=== PATIENT | female | born 1980 | race Asian ===

== ENCOUNTER → 2021-10-29 | Outpatient (CLI) | payer MEDICAID ==
[2021-10-29 12:59] LABS: Basophils # (auto) 0 10 ^3/uL (0-0.2); Basophils % (auto) 0.5 % (0.0-2.0); Eosinophils # (auto) 0.2 10 ^3/uL (0-0.8); Eosinophils % (auto) 2.4 % (0.0-7.0); Hematocrit 31.9 % (36.0-46.0); Hemoglobin 11.3 g/dL (12.2-16.2); Lymphocytes # (auto) 1.8 10 ^3/uL (0.4-5.4); Lymphocytes % (auto) 19.7 % (10.0-50.0); Mean Corpuscular Hemoglobin 30.1 pg (28.0-32.0); Mean Corpuscular Hgb Conc. 35.5 g/dL (32.0-36.0); Mean Corpuscular Volume 84.7 fL (80.0-100.0); Monocytes # (auto) 0.5 10 ^3/uL (0-1.3); Monocytes % (auto) 5.1 % (0.0-12.0); Neutrophils # (auto) 6.5 10 ^3/uL (1.6-8.6); Neutrophils % (auto) 72.3 % (37.0-80.0); Red Blood Cells 3.76 10^6/uL (4.0-5.20); Red Cell Distribution Width 13.6 % (11.8-14.3); White Blood Cell 9.1 10^3/uL (4.4-10.8)
[2021-10-29 13:07] LABS: Amphetamine Screen, Urine NEGATIVE (NEGATIVE); Barbiturate Scree,Urine NEGATIVE (NEGATIVE); Benzodiazephine Screen, Urine NEGATIVE (NEGATIVE); Cannabinoid Screen, Urine NEGATIVE (NEGATIVE); Cocaine Screen, Urine NEGATIVE (NEGATIVE)
[2021-10-29 13:13] LABS: Alcohol, Urine < 3.0 mg/dL (0-10); Opiate Scree,Urine NEGATIVE (NEGATIVE); Phencyclidine Screen, Urine NEGATIVE (NEGATIVE)
[2021-10-30 06:06] LABS: RPR Non Reactive (Non Reactive)
== END | disposition home or self-care (01) ==
LOC: LAB 11:17
PROVIDERS: ATTEND Obstetrics & Gynecology
DX: Z34.00 Encounter for supervision of normal first pregnancy, unspecified trimester (principal); Z31.430 Encounter of female for testing for genetic disease carrier status for procreative management; Z20.2 Contact with and (suspected) exposure to infections with a predominantly sexual mode of transmission; N39.0 Urinary tract infection, site not specified
CPT/HCPCS: 36415; 80307; 83036; 84112; 84144; 84702; 85025; 86592; 86703; 86762; 86850; 86900; 86901; 87086; 87340

== ENCOUNTER 2022-02-05 10:25 | Observation (INO) | payer MEDICAID ==
[2022-02-05] MEDS ORDERED: PREN-96 PO (11:35)
== END 2022-02-05 11:50 | disposition home or self-care (01) ==
LOC: LDRP 10:25
PROVIDERS: ADMIT Obstetrics & Gynecology; ATTEND Obstetrics & Gynecology
DX: O28.1 Abnormal biochemical finding on antenatal screening of mother (principal); O34.63 Maternal care for abnormality of vagina, third trimester; N89.8 Other specified noninflammatory disorders of vagina; Z3A.30 30 weeks gestation of pregnancy
CPT/HCPCS: 59025; 81002; 94760; G0378

== ENCOUNTER 2022-02-12 08:20 | Observation (INO) | payer MEDICAID ==
[~2022-02-12 08:20] MED LIST: PREN-96 PO
== END 2022-02-12 11:03 | disposition home or self-care (01) ==
LOC: LDRP 09:18
PROVIDERS: ADMIT Obstetrics & Gynecology; ATTEND Obstetrics & Gynecology
DX: O28.1 Abnormal biochemical finding on antenatal screening of mother (principal); R77.2 Abnormality of alphafetoprotein; Z3A.31 31 weeks gestation of pregnancy
CPT/HCPCS: 59025; 81002; 94760; G0378

== ENCOUNTER 2022-02-19 07:46 | Observation (INO) | payer MEDICAID | END 2022-02-19 10:12 | disposition home or self-care (01) | LOC: LDRP 09:00 | PROVIDERS: ADMIT Obstetrics & Gynecology; ATTEND Obstetrics & Gynecology | DX: O28.1 Abnormal biochemical finding on antenatal screening of mother (principal); O99.891 Other specified diseases and conditions complicating pregnancy; M54.9 Dorsalgia, unspecified; Z3A.32 32 weeks gestation of pregnancy | CPT/HCPCS: 59025; 81002; 94760; G0378 ==

== ENCOUNTER 2022-02-26 08:42 | Observation (INO) | payer MEDICAID ==
[~2022-02-26] VITALS: Ht 157.5 cm; Wt 59.9 kg
[2022-02-26] MEDS ORDERED: TERBUTALINE SULFATE 1 MG/ML 1ML VIAL SC SCH (10:00)
== END 2022-02-26 11:06 | disposition home or self-care (01) ==
LOC: LDRP 08:42
PROVIDERS: ADMIT Obstetrics & Gynecology; ATTEND Obstetrics & Gynecology
DX: O28.1 Abnormal biochemical finding on antenatal screening of mother (principal); R77.2 Abnormality of alphafetoprotein; Z3A.33 33 weeks gestation of pregnancy
CPT/HCPCS: 59025; 81002; 94760; 96372; G0378; J3105

== ENCOUNTER 2022-03-05 08:39 | Observation (INO) | payer MEDICAID ==
[~2022-03-05] VITALS: Ht 149.9 cm; Wt 70.3 kg
== END 2022-03-05 09:47 | disposition home or self-care (01) ==
LOC: LDRP 08:39
PROVIDERS: ADMIT Obstetrics & Gynecology; ATTEND Obstetrics & Gynecology
DX: O28.1 Abnormal biochemical finding on antenatal screening of mother (principal); Z3A.34 34 weeks gestation of pregnancy
CPT/HCPCS: 59025; 76818; 81002; 94760; G0378

== ENCOUNTER 2022-03-12 07:59 | Observation (INO) | payer MEDICAID | END 2022-03-12 10:47 | disposition home or self-care (01) | LOC: LDRP 08:30 | PROVIDERS: ADMIT Obstetrics & Gynecology; ATTEND Obstetrics & Gynecology | DX: O28.1 Abnormal biochemical finding on antenatal screening of mother (principal); R77.2 Abnormality of alphafetoprotein; O42.92 Full-term premature rupture of membranes, unspecified as to length of time between rupture and onset of labor; Z3A.35 35 weeks gestation of pregnancy | CPT/HCPCS: 59025; 76818; 81002; 94760; G0378 ==

== ENCOUNTER → 2022-03-12 | Outpatient (CLI) | payer MEDICAID ==
[2022-03-12 12:39] LABS: Hematocrit 35.6 % (36.0-46.0); Hemoglobin 12.2 g/dL (12.2-16.2); Mean Corpuscular Hemoglobin 30.6 pg (28.0-32.0); Mean Corpuscular Hgb Conc. 34.1 g/dL (32.0-36.0); Mean Corpuscular Volume 89.5 fL (80.0-100.0); Red Blood Cells 3.98 10^6/uL (4.0-5.20)
[2022-03-12 12:51] LABS: Basophils % (manual) 0 (0.0-2.0); Blast Cells 0; Metamyelocytes % 0; Myelocytes % 0; Promyelocytes % 0; Reactive Lymphocytes 0
[2022-03-12 13:03] LABS: Band Neutrophils % (manual) 8; Eosinophils % (manual) 1 (0-7); Lymphocytes % (manual) 20 (10.0-50.0); Monocytes % (manual) 8 (0-12)
[2022-03-13 07:06] LABS: RPR Non Reactive (Non Reactive)
== END | disposition home or self-care (01) ==
LOC: LAB 11:19
PROVIDERS: ATTEND Obstetrics & Gynecology
DX: Z34.80 Encounter for supervision of other normal pregnancy, unspecified trimester (principal); Z11.3 Encounter for screening for infections with a predominantly sexual mode of transmission
CPT/HCPCS: 36415; 84112; 85007; 85027; 86592

== ENCOUNTER 2022-03-19 07:38 | Observation (INO) | payer MEDICAID | END 2022-03-19 11:43 | disposition home or self-care (01) | LOC: LDRP 08:30 | PROVIDERS: ADMIT Obstetrics & Gynecology; ATTEND Obstetrics & Gynecology | DX: O28.1 Abnormal biochemical finding on antenatal screening of mother (principal); R77.2 Abnormality of alphafetoprotein; Z3A.37 37 weeks gestation of pregnancy | CPT/HCPCS: 59025; 76818; 81002; 94760; G0378 ==

== ENCOUNTER 2022-03-26 09:54 | Observation (INO) | payer MEDICAID ==
[2022-03-26 11:44] LABS: Albumin 2.8 g/dL (3.4-5.0); BUN/Creatinine Ratio 12.5; Calcium 8.7 mg/dL (8.5-10.1); Potassium 4.1 mmol/L (3.5-5.1)
[2022-03-26 11:47] LABS: Bilirubin, Total 0.3 mg/dL (0.2-1.0); Total Protein 6.8 g/dL (6.4-8.2)
[2022-03-26 12:00] LABS: Basophils # (auto) 0 10 ^3/uL (0-0.2); Basophils % (auto) 0.5 % (0.0-2.0); Eosinophils # (auto) 0.1 10 ^3/uL (0-0.8); Eosinophils % (auto) 1.9 % (0.0-7.0); Hematocrit 34.3 % (36.0-46.0); Hemoglobin 12.4 g/dL (12.2-16.2); Lymphocytes # (auto) 1.6 10 ^3/uL (0.4-5.4); Lymphocytes % (auto) 20.4 % (10.0-50.0); Mean Corpuscular Hgb Conc. 36.1 g/dL (32.0-36.0); Mean Corpuscular Volume 88.6 fL (80.0-100.0); Monocytes # (auto) 0.6 10 ^3/uL (0-1.3); Neutrophils # (auto) 5.3 10 ^3/uL (1.6-8.6); Neutrophils % (auto) 69.2 % (37.0-80.0); Nucleated Red Blood Cells % 0.1 %; Red Blood Cells 3.88 10^6/uL (4.0-5.20); Red Cell Distribution Width 14.1 % (11.8-14.3); White Blood Cell 7.6 10^3/uL (4.4-10.8)
== END 2022-03-26 12:07 | disposition home or self-care (01) ==
LOC: UNDOADMOB 09:54 → LDRP 09:54 → UNDODISOB 12:07
PROVIDERS: ADMIT Obstetrics & Gynecology; ATTEND Obstetrics & Gynecology
DX: O35.1XX0 Maternal care for (suspected) chromosomal abnormality in fetus, not applicable or unspecified (principal); R77.2 Abnormality of alphafetoprotein; O42.92 Full-term premature rupture of membranes, unspecified as to length of time between rupture and onset of labor; Z3A.37 37 weeks gestation of pregnancy
CPT/HCPCS: 36415; 59025; 76818; 80053; 81002; 85025; G0378

== ENCOUNTER 2022-03-31 10:02 | Observation (INO) | payer MEDICAID | END 2022-03-31 16:00 | disposition home or self-care (01) | LOC: UNDOADMOB 11:19 → LDRP 11:19 | PROVIDERS: ADMIT Obstetrics & Gynecology Obstetrics; ATTEND Obstetrics & Gynecology Obstetrics | DX: O32.1XX0 Maternal care for breech presentation, not applicable or unspecified (principal); O09.523 Supervision of elderly multigravida, third trimester; O26.893 Other specified pregnancy related conditions, third trimester; R77.2 Abnormality of alphafetoprotein; Z3A.38 38 weeks gestation of pregnancy | CPT/HCPCS: 59025; 76818; 81002; 94760; G0378 ==

== ENCOUNTER 2022-04-04 05:48 | Inpatient (IN) | payer MEDICAID ==
[2022-04-02 10:09] LABS: Urine Bacteria FEW /hpf (None Seen); Urine Blood Negative /uL (Negative); Urine Hyaline Cast FEW /lpf (0 - 2); Urine Specific Gravity 1.002 (1.001-1.035); Urine WBC 18 /hpf (0 - 5)
[2022-04-02 10:11] LABS: Basophils # (auto) 0.1 10 ^3/uL (0-0.2); Basophils % (auto) 0.9 % (0.0-2.0); Eosinophils # (auto) 0.1 10 ^3/uL (0-0.8); Eosinophils % (auto) 1.3 % (0.0-7.0); Hematocrit 36.7 % (36.0-46.0); Hemoglobin 12.5 g/dL (12.2-16.2); Lymphocytes % (auto) 12.2 % (10.0-50.0); Mean Corpuscular Hemoglobin 30.4 pg (28.0-32.0); Mean Corpuscular Volume 89.5 fL (80.0-100.0); Monocytes # (auto) 0.6 10 ^3/uL (0-1.3); Monocytes % (auto) 6.9 % (0.0-12.0); Neutrophils # (auto) 6.3 10 ^3/uL (1.6-8.6); Neutrophils % (auto) 78.7 % (37.0-80.0); Nucleated Red Blood Cells % 0.1 %; Red Cell Distribution Width 14.2 % (11.8-14.3)
[2022-04-02 10:16] LABS: Albumin 2.8 g/dL (3.4-5.0); Potassium 4.1 mmol/L (3.5-5.1)
[2022-04-02 10:18] LABS: BUN/Creatinine Ratio 7.3; Bilirubin, Total 0.5 mg/dL (0.2-1.0); Total Protein 6.9 g/dL (6.4-8.2)
[2022-04-02 10:18] LABS: Alcohol, Urine < 3.0 mg/dL (0-10); Amphetamine Screen, Urine NEGATIVE (NEGATIVE); Barbiturate Scree,Urine NEGATIVE (NEGATIVE); Benzodiazephine Screen, Urine NEGATIVE (NEGATIVE); Cannabinoid Screen, Urine NEGATIVE (NEGATIVE); Cocaine Screen, Urine NEGATIVE (NEGATIVE); Opiate Scree,Urine NEGATIVE (NEGATIVE); Phencyclidine Screen, Urine NEGATIVE (NEGATIVE)
[2022-04-02 10:25] LABS: INR 0.89 (0.9-1.15); Partial Thromboplastin Time 25.6 sec (23.6-33.0)
[2022-04-03 06:25] LABS: RPR Non Reactive (Non Reactive)
[~2022-04-04] VITALS: Ht 157.5 cm; Wt 62.6 kg
[2022-04-04] MEDS ORDERED: LACTATED RINGER'S 1,000 ML IV SCH ×2 (07:15→08:15)
[2022-04-04] MEDS ORDERED: ceFAZolin 1GM/50ML 50 ML IV ONE (08:15)
[2022-04-04] MEDS ORDERED: LACTATED RINGER'S 1,000 ML IV ONE (08:15)
[2022-04-04] MEDS ORDERED: DOCU-94 PO (08:35)
[2022-04-04] MEDS ORDERED: HYDR-4902 PO (08:35)
[2022-04-04] MEDS ORDERED: IBUP800T27 PO (08:35)
[2022-04-04] MEDS ORDERED: SODIUM CITR/CITRIC ACID ORAL SOLN 30 ML PO SCH (09:00)
[2022-04-04] MEDS ORDERED: TETRACAINE 1% INJ 2 ML VIAL IJ ONE (09:10)
[2022-04-04] MEDS ORDERED: MORPHINE SULF PF 5 MG/10 ML VIAL ONE (09:18)
[2022-04-04] MEDS ORDERED: oxyTOCIN 10 UNIT/ML 10ML VIAL ONE (09:23)
[2022-04-04] MEDS ORDERED: ceFAZolin 1GM/50ML 50 ML IV SCH (10:30)
[2022-04-04] MEDS ORDERED: LACT. RINGERS/OXYTOCIN 20UNITS 1,000 ML IV ONE (10:30)
[2022-04-04] MEDS ORDERED: ONDANSETRON HCL 4 MG/2 ML VIAL IV PRN ×2 (10:30→11:15)
[2022-04-04] MEDS ORDERED: ePHEDrine SULFATE 50 MG/ML AMP ONE (10:36)
[2022-04-04] MEDS ORDERED: diphenhdrAMINE HCL 50 MG/1 ML VL IV PRN (11:15)
[2022-04-04] MEDS ORDERED: HYDROmorphone HCL 2 MG/ML VL/or syr IV PRN (11:15)
[2022-04-04] MEDS ORDERED: NALOXONE HCL 0.4 MG/ML VIAL IV PRN (11:15)
[2022-04-04] MEDS ORDERED: NALBUPHINE HCL 10 MG/1ml INJECTION SUBCUT ONE (11:15)
[2022-04-04] MEDS ORDERED: DexAMETHasone SOD PHOS 10MG/1ML VIAL INJ IV PRN (11:15)
[2022-04-04] MEDS: ceFAZolin 1GM/50ML 50 ML IV SCH (15:55)
[2022-04-04 18:30] VITALS: BP 100/63
[2022-04-04] MEDS: ACETAMINOPHEN IV 1000 MG/100ML (10MG/ML) IV PRN (19:10)
[2022-04-04 20:38] VITALS: BP 95/56
[2022-04-04 21:27] LABS: Basophils # (auto) 0.1 10 ^3/uL (0-0.2); Basophils % (auto) 0.9 % (0.0-2.0); Eosinophils # (auto) 0 10 ^3/uL (0-0.8); Eosinophils % (auto) 0.3 % (0.0-7.0); Hematocrit 35.7 % (36.0-46.0); Hemoglobin 11.9 g/dL (12.2-16.2); Lymphocytes # (auto) 1.6 10 ^3/uL (0.4-5.4); Lymphocytes % (auto) 21.1 % (10.0-50.0); Mean Corpuscular Hemoglobin 29.6 pg (28.0-32.0); Mean Corpuscular Hgb Conc. 33.4 g/dL (32.0-36.0); Mean Corpuscular Volume 88.8 fL (80.0-100.0); Monocytes # (auto) 0.4 10 ^3/uL (0-1.3); Monocytes % (auto) 5.7 % (0.0-12.0); Neutrophils # (auto) 5.6 10 ^3/uL (1.6-8.6); Nucleated Red Blood Cells % 0.1 %; Red Blood Cells 4.02 10^6/uL (4.0-5.20); Red Cell Distribution Width 14.4 % (11.8-14.3); White Blood Cell 7.8 10^3/uL (4.4-10.8)
[2022-04-04 21:55] VITALS: BP 110/54
[2022-04-04 23:00] VITALS: BP 102/56
[2022-04-05] VITALS (7 sets, daily range): BP systolic 91–118; BP diastolic 54–72
[2022-04-05] MEDS: ceFAZolin 1GM/50ML 50 ML IV SCH (03:51)
[2022-04-05] MEDS: ACETAMINOPHEN IV 1000 MG/100ML (10MG/ML) IV PRN (03:51)
[2022-04-05 07:07] LABS: Basophils # (auto) 0.1 10 ^3/uL (0-0.2); Basophils % (auto) 1.4 % (0.0-2.0); Eosinophils # (auto) 0 10 ^3/uL (0-0.8); Eosinophils % (auto) 0.2 % (0.0-7.0); Hematocrit 35.4 % (36.0-46.0); Lymphocytes # (auto) 1.4 10 ^3/uL (0.4-5.4); Lymphocytes % (auto) 17.3 % (10.0-50.0); Mean Corpuscular Hemoglobin 30.2 pg (28.0-32.0); Mean Corpuscular Hgb Conc. 33.8 g/dL (32.0-36.0); Mean Corpuscular Volume 89.4 fL (80.0-100.0); Monocytes # (auto) 0.4 10 ^3/uL (0-1.3); Monocytes % (auto) 4.5 % (0.0-12.0); Neutrophils # (auto) 6.2 10 ^3/uL (1.6-8.6); Neutrophils % (auto) 76.6 % (37.0-80.0); Nucleated Red Blood Cells % 0.1 %; Red Blood Cells 3.96 10^6/uL (4.0-5.20); Red Cell Distribution Width 14.1 % (11.8-14.3); White Blood Cell 8.1 10^3/uL (4.4-10.8)
[2022-04-05] MEDS ORDERED: HYDROcodone-ACET 5/325MG TAB PO PRN (07:30)
[2022-04-05] MEDS ORDERED: SIMETHICONE 80 MG CHEWABLE TABLET PO PRN (07:30)
[2022-04-05] MEDS: HYDROcodone-ACET 5/325MG TAB PO PRN ×3 (08:28→17:23)
[2022-04-05] MEDS: DOCUSATE SOD 100 MG CAP PO SCH ×2 (10:23→22:43)
[2022-04-05] MEDS: IBUPROFEN 800 MG TAB PO PRN ×2 (10:27→22:42)
[2022-04-05] MEDS ORDERED: ceFAZolin 1GM/50ML 50 ML IV SCH (12:00)
[2022-04-06 03:21] VITALS: BP 119/67
[2022-04-06] MEDS: HYDROcodone-ACET 5/325MG TAB PO PRN ×3 (03:47→15:30)
[2022-04-06 07:00] VITALS: BP 118/64
[2022-04-06] MEDS: DOCUSATE SOD 100 MG CAP PO SCH (10:22)
[2022-04-06 11:00] VITALS: BP 118/64
[2022-04-06 15:00] VITALS: BP 122/74
[2022-04-06] MEDS: IBUPROFEN 800 MG TAB PO PRN (15:30)
== END 2022-04-06 17:30 | disposition home or self-care (01) | DRG 540 ==
LOC: LDRP 05:48 → UNDOADMIN 05:48 → LDRP 07:16
PROVIDERS: ADMIT Obstetrics & Gynecology; ATTEND Obstetrics & Gynecology
PROC: 10D00Z1 Extraction of Products of Conception, Low, Open Approach (ICD-10-PCS; principal; 2022-04-04 09:30)
DX: O98.52 Other viral diseases complicating childbirth (principal); U07.1 COVID-19; O32.1XX0 Maternal care for breech presentation, not applicable or unspecified; Z37.0 Single live birth; Z3A.39 39 weeks gestation of pregnancy
CPT/HCPCS: 36415; 59025; 76815; 80053; 80307; 81001; 81002; 82948; 85025; 85610; 85730; 86592; 86850; 86900; 86901; 94760; 94762; 96360; 96361; 96365; 96366; G0378; J0131; J0690; J2590

== ENCOUNTER 2024-10-24 17:26 | Emergency (ER) | payer MEDICAID ==
[~2024-10-24] VITALS: Ht 152.4 cm; Wt 51.5 kg
[~2024-10-24 17:26] MED LIST changes: +DOCU-94 PO; +HYDR-4902 PO; +IBUP-1456 PO
--- NOTE | 2024-10-24 19:17 | DVH ---
CHEST RADIOGRAPH Indication: cough Technique: Single frontal view of the chest was obtained COMPARISON: None FINDINGS: Lines and Tubes: None Lungs: Clear Pleura: No effusion. No pneumothorax. Cardiomediastinal contours: Unremarkable Bones: Unremarkable IMPRESSION: 1. No acute disease.
[2024-10-24] MEDS ORDERED: ACET500T58 PO (21:32)
[2024-10-24] MEDS ORDERED: PRED20TA2 PO (21:32)
--- NOTE | 2024-10-24 21:32 | ED.PDOC ---
History of Present Illness HPI Comments 44-YEAR-OLD FEMALE PRESENTS TO ER WITH COMPLAINTS OF FLU-LIKE SYMPTOMS X5 DAYS. PATIENT REPORTS THAT SHE HAS BEEN EXPERIENCING DRY COUGH, CONGESTION, BODY ACHES AND INTERMITTENT FEVER X5 DAYS. REPORTS THAT SHE LAST TOOK [id number] TYLENOL AT 8 A.M. PRIOR TO ARRIVAL TO ER. PATIENT PRESENTS TO ER AFEBRILE, AMBULATORY ON ARRIVAL, WITH STEADY GAIT, IN NO DISTRESS. DENIES SHORTNESS OF BREATH, CHEST PAIN, HEMOPTYSIS, NAUSEA/VOMITING, SORE THROAT, EARACHE, HEADACHE, DIZZINESS, ABDOMINAL PAIN, CHANGES IN URINATION/BM OR ANY FURTHER SYMPTOMS/COMPLAINTS Chief Complaint: Flu like Time Seen by MD: 18:55 Primary Care Provider: UNKNOWN Reviewed Notes: Nurses Notes, Medications, Allergies Information Source: Patient (VIA FUND CONTROLLER) Mode of Arrival: Ambulatory Past Medical History PAST MEDICAL HISTORY: Denies Surgical History: Family History Family History: Unknown Social History Smoker: Non-Smoker Alcohol: Denies ETOH Use Drugs: Denies Drug Use Lives In: Home Constitutional: See HPI EENTM: See HPI Respiratory: See HPI Cardiovascular: No Symptoms Reported Gastrointestinal: No Symptoms Reported Genitourinary: No Symptoms Reported Neurological: No Symptoms Reported Musculoskeletal: No Symptoms Reported Integumentary: No Symptoms Reported Allergic/Immunocompromised: others (DENIES) Hematologic/Lymphatic: No Symptoms Reported Endocrine: No Symptoms Reported Psychiatric: No symptoms Reported Physical Exam General Appearance: No Apparent Distress HEENT: Normal ENT Inspection, PERRL/EOMI, Pharynx Normal, TMs Normal Neck: Full Range of Motion, Non-Tender, Normal Respiratory: Chest Non-Tender, Lungs Clear, No Accessory Muscle Use, No Respiratory Distress, Normal Breath Sounds Cardiovascular: No Murmur, No Gallop, Regular Rate/Rhythm Breast Exam: Deferred Gastrointestinal: NOT DONE Genitalia: Deferred Pelvic: Deferred Rectal: Deferred Extremities: Normal capillary refill, Normal range of motion Neurologic: Alert, front of house manager II-XII nml as Tested, No Motor Deficits, Normal Affect, Normal Mood, No Sensory Deficits Cerebellar Function: Normal Reflexes: Normal Skin: Dry, Normal Color, Warm Peripheral Pulses: 2+ Radial (R), 2+ Radial (L), 2+ Brachial (R), 2+ Brachial (L) Lymphatic: No Adenopathy Was a procedure done? Was a procedure done?: No Sedation Sedation?: No Fever Differential Dx Differential Diagnosis: Pneumonia, Sepsis, Other (COVID-19, INFLUENZA) X-Ray, Labs, Meds, VS Vital Signs Date Time Temp Pulse Resp B/P (MAP) Pulse Ox O2 Delivery O2 Flow Rate FiO2 10/24/24 18:00 Room Air 10/24/24 18:00 97.8 110 18 109/66 (80) 95 97.8 10/24/24 18:00 97.8 110 18 109/64 (79) 95 Lab Test 10/24/24 20:40 Range/Units Influenza Type A Antigen Negative Negative Influenza Type B Antigen Negative Negative SARS-CoV-2 Antigen (Rapid) Negative NEGATIVE PATIENT: CARL BONEACCT: [id number]: [id number] : 1980 LOC: ER ROOM / BED: / AGE / SEX: 44 / F ADM STATUS: REG ER SERVICE 54 ORDERING PHYSICIAN: MAXIMILIAN KIM PROCEDURE(s): CXR1 - CHEST XRAY 1 VIEW REASON: cough ORDER NUMBER(s): [id number], ACCESSION NUMBER(s): [id number] CHEST RADIOGRAPH Indication: cough Technique: Single frontal view of the chest was obtained COMPARISON: None FINDINGS: Lines and Tubes: None Lungs: Clear Pleura: No effusion. No pneumothorax. Cardiomediastinal contours: Unremarkable Bones: Unremarkable IMPRESSION: 1. No acute disease. ATED BY: JUSTYNA GUERRA MD DICTATED DATE/TIME: 10/24/241914 SIGNED BY: JUSTYNA GUERRA MD SIGNED DATE/TIME: 10/24/241914 CC: ALL SWAB RESULTS REVIEWED-NEGATIVE CHEST X-RAY REVIEWED ADVISED TO DRINK PLENTY OF FLUIDS PATIENT IN NO DISTRESS DURING ER VISIT/PRIOR TO DISCHARGE ADVISED TO FOLLOW UP WITH PCP IN 1-2 DAYS PATIENT VERBALIZED UNDERSTANDING AND AGREEABLE WITH CURRENT PLAN OF CARE ADVISED TO RETURN TO ER IMMEDIATELY IF SYMPTOMS WORSEN Images Reviewed?: Images reviewed and evaluated by me Time of 1ST Reevaluation: 21:14 Reevaluation 1ST: N/A Patient Education/Counseling: Diagnosis, Treatment, Prognosis, Need For Follow Up Family Education/Counseling: No Family Present Departure 1 Departure Time of Disposition: 21:30 Impression: Primary Impression: Upper respiratory infection Qualified Codes: J06.9 - Acute upper respiratory infection, unspecified Disposition: HOME / SELF CARE / HOMELESS Condition: Stable e-Prescriptions Azithromycin (Azithromycin) 250 Mg Tab 250 MG PO DAILY MDD 500 for 5 Days, #6 TAB 0 Refills 2 TABLETS ORALLY ON DAY ONE, THEN 1 TABLET ORALLY DAILY FOR 4 DAYS Prov: MAXIMILIAN KIM 10/24/24 Prednisone (Prednisone) 20 Mg Tab 20 MG PO BID for 5 Days, #10 TAB 0 Refills Prov: MAXIMILIAN KIM 10/24/24 Acetaminophen (Acetaminophen) 500 Mg Tab 500 MG PO Q4HPRN, #30 TAB 0 Refills Prov: MAXIMILIAN KIM 10/24/24 Discharged With: Self Critical Care Note Critical Care Time?: No Stability Stability form required: No Heart Score Heart Score: Heart Score Response (Comments) Value History N/A 0 EKG N/A 0 Age N/A 0 Risk Factors N/A 0 Troponin N/A 0 Total 0 MAXIMILIAN KIM Oct 24, 2024 21:32
[2024-10-24 21:58] LABS: Rapid Influenza A Negative (Negative); Rapid Influenza B Negative (Negative)
[2024-10-24 21:59] LABS: COVID19 ANTIGEN SOFIA FIA NEGATIVE (NEGATIVE)
[2024-10-24] MEDS ORDERED: AZIT-43 PO (22:10)
[2024-10-24 22:14] VITALS: BP 96/47; PULSE 113; RESP 16; TEMP 98.5; O2SAT 94
== END 2024-10-24 22:18 | disposition home or self-care (01) ==
LOC: ER 17:28
DX: J06.9 Acute upper respiratory infection, unspecified (principal); R05.9 Cough, unspecified; R50.9 Fever, unspecified; R09.81 Nasal congestion; Z98.890 Other specified postprocedural states; Z20.822 Contact with and (suspected) exposure to COVID-19
CPT/HCPCS: 36415; 71045; 87426; 87804